=== PATIENT | male | born 1960 | race Caucasian/White ===

== ENCOUNTER 2018-05-15 23:04 | Emergency (ER) | payer SELFPAY ==
[~2018-05-15] VITALS: Ht 188 cm; Wt 99.8 kg
[2018-05-16] MEDS ORDERED: METHYLPREDNISOLONE SOD SUCC 125 MG/2ML VIAL IM ONE (01:00)
[2018-05-16] MEDS ORDERED: KETOROLAC TROMETHAMINE 60 MG/2 ML VIAL IM ONE (01:00)
== END 2018-05-16 01:55 | disposition home or self-care (01) ==
LOC: ER 23:04
DX: M54.42 Lumbago with sciatica, left side (principal); I10 Essential (primary) hypertension
CPT/HCPCS: 96372; 99282; J1885; J2930

== ENCOUNTER → 2018-05-23 | Outpatient (CLI) | payer OTHER ==
[~2018-05-23] MED LIST: LORAZEPAM INJ 2 MG/ML VIAL ONE
--- NOTE | 2018-05-24 09:44 | Diagnostic Imaging Report ---
History: Low back pain. Lumbar stenosis Comparison studies: None Technique: Sagittal, coronal and axial T2 , sagittal T1 and IR, axial spin density oblique. Intravenous contrast: None Findings: Number of lumbar vertebral bodies:5 Alignment: Straightening of the lordosis.No scoliosis. Soft tissues: No T2 hyperintense inflammatory changes. 2.8 cm cyst is seen at the right interpolar region Paraspinal muscles: No signal abnormalities. No atrophy. Lower thoracic cord:Normal in signal and morphology. The tip of the conus is at T12-L1. Cauda equina: No masses. No arachnoiditis. Vertebrae: Normal in height and signal intensity. No compression fractures, infection or neoplasm. Degenerative changes: L1-L2: Disc degeneration with loss of T2 signal and decreased intervertebral space. Diffuse disc bulge with superimposed small central annular fissure and mild facet hypertrophy results in mild canal stenosis and mild bilateral foraminal narrowing. L2-L3: Disc degeneration with loss of T2 signal and decreased intervertebral. Mild diffuse disc bulge with superimposed small central annular fissure and mild bilateral facet hypertrophy results in no significant canal stenosis or foraminal narrowing. L3-L4: Disc degeneration with loss of T2 signal. Mild disc bulge, mild facet hypertrophy and ligamentum flavum thickening results in no significant canal stenosis and mild right foraminal narrowing. L4-L5: Disc degeneration with loss of T2 signal. Asymmetric left disc bulge with superimposed left foraminal disc protrusion and mild facet hypertrophy results in no significant canal stenosis and severe left foraminal narrowing with impingement of the exiting L4 nerve root. Trace of fluid at the bilateral facet joints and L4 inferior facet 2-5 mm subchondral cysts L5-S1: Disc degeneration with loss of T2 signal asymmetric right disc bulge and mild bilateral facet hypertrophy results in no significant canal stenosis, moderate left and severe right foraminal narrowing. Trace of fluid at the bilateral facet joints and L5 inferior facet 2-4 mm subchondral cysts Additional findings: None IMPRESSION: Severe left foraminal narrowing at L4-L5 secondary to left foraminal disc protrusion results in impingement on the exiting L4 nerve root. Severe right foraminal narrowing at L5-S1 secondary to asymmetric right disc bulge and mild facet hypertrophy. Diffuse disc degeneration throughout the lumbar spine without endplate edema. Mild facet hypertrophy the lower lumbar spine with mild synovitis changes at L4-L5 and L5-S1. Other degenerative changes as described above Signed by: Damien Pfeiffer.D. on 05/24/2018 9:40 AM
== END ==
LOC: MRI 15:14
PROVIDERS: ATTEND Neurological Surgery
DX: M48.061 Spinal stenosis, lumbar region without neurogenic claudication (principal)
CPT/HCPCS: 72148; J2060

== ENCOUNTER → 2020-07-18 | Day surgery (SDC) | payer OTHER ==
[2020-07-04 10:38] LABS: ANION GAP 16.2 mmol/L (8-16); CALCIUM 9.3 mg/dL (8.4-10.2); CREATININE, SERUM 1.34 mg/dL (0.72-1.25); POTASSIUM 4.2 mmol/L (3.5-5.1)
[~2020-07-18] MED LIST changes: +BUPIVACAINE HCL 0.5% INJ 30 ML VIAL INJ ONE; +BYSTOLIC10 MG PO; +CEFAZOLIN SOD 1 GM/NS 50ML 50 ML IV ONE; +DESFLURANE 240 ML BTL INH ONE; +DEXAMETHASONE SOD PHOS INJ 4 MG/ML VIAL ONE; +FENTANYL CITRATE/PF 100MCG/2 ML INJ ONE; +FINASTERIDE5 MG PO; +LEVOCETIRIZINE D5 MG PO; +LIDOCAINE HCL 2% LOCAL INJ 5 ML SDV VIAL INJ ONE; -LORAZEPAM INJ 2 MG/ML VIAL ONE; +MIDAZOLAM HCL 2 MG/2 ML VIAL ONE; +MUPIROCIN 2% OINT 22 GM TUBE ONE; +ONDANSETRON HCL INJ 2MG/ML 2ML 2 MG/ML VIAL ONE; +PROPOFOL IV EMULSION 10 MG/ML 20 ML VIAL ONE; +TRIAMCINOLONE ACET 40 MG/ML VIAL ONE; +VALSARTAN-HCTZ1 EAC1 PO
[2020-07-18 08:20] VITALS: BP 112/82
== END | disposition home or self-care (01) ==
LOC: OR 05:35
PROVIDERS: ATTEND Plastic Surgery
DX: G56.01 Carpal tunnel syndrome, right upper limb (principal); M18.9 Osteoarthritis of first carpometacarpal joint, unspecified; M65.831 Other synovitis and tenosynovitis, right forearm; U07.1 COVID-19; I10 Essential (primary) hypertension; Z01.812 Encounter for preprocedural laboratory examination; Z20.828 Contact with and (suspected) exposure to other viral communicable diseases
CPT/HCPCS: 20600; 25115; 36415; 80048; J0690; J1100; J2001; J2250; J2405; J2704; J3010; J3301; U0002

== ENCOUNTER 2022-09-17 08:27 | Emergency (ER) | payer OTHER ==
[~2022-09-17] VITALS: Ht 190.5 cm; Wt 131.5 kg
[~2022-09-17 08:27] MED LIST changes: -BUPIVACAINE HCL 0.5% INJ 30 ML VIAL INJ ONE; -CEFAZOLIN SOD 1 GM/NS 50ML 50 ML IV ONE; -DESFLURANE 240 ML BTL INH ONE; -DEXAMETHASONE SOD PHOS INJ 4 MG/ML VIAL ONE; -FENTANYL CITRATE/PF 100MCG/2 ML INJ ONE; -LIDOCAINE HCL 2% LOCAL INJ 5 ML SDV VIAL INJ ONE; -MIDAZOLAM HCL 2 MG/2 ML VIAL ONE; -MUPIROCIN 2% OINT 22 GM TUBE ONE; -ONDANSETRON HCL INJ 2MG/ML 2ML 2 MG/ML VIAL ONE; -PROPOFOL IV EMULSION 10 MG/ML 20 ML VIAL ONE; -TRIAMCINOLONE ACET 40 MG/ML VIAL ONE
[2022-09-17] MEDS ORDERED: PROPECIA1 MG (09:01)
[2022-09-17] MEDS ORDERED: AMLODIPINE BESYL5 MG PO (09:01)
[2022-09-17] MEDS ORDERED: VITAMIN D3250 MC1 (09:01)
[2022-09-17] MEDS ORDERED: MELOXICAM5 MG PO (09:01)
[2022-09-17] MEDS ORDERED: AUGMENTIN 500-1 EACH PO (09:28)
[2022-09-17] MEDS ORDERED: IBUPROFEN 400 MG TAB PO ONE (09:30)
[2022-09-17] MEDS ORDERED: CEFTRIAXONE 1 GM VIAL IM ONE (09:30)
[2022-09-17] MEDS ORDERED: PAXLOVID 300-11 EACH PO (10:42)
== END 2022-09-17 09:34 | disposition home or self-care (01) ==
LOC: FSED 08:40
DX: R50.9 Fever, unspecified (principal); U07.1 COVID-19; J02.0 Streptococcal pharyngitis; R05.9 Cough, unspecified; I10 Essential (primary) hypertension; Z98.84 Bariatric surgery status; L65.9 Nonscarring hair loss, unspecified
CPT/HCPCS: 83518; 87400; 96372; 99283; J0696; U0002

== ENCOUNTER 2024-10-29 21:05 | Emergency (ER) | payer MEDICARE, OTHER ==
[~2024-10-29] VITALS: Ht 190.5 cm; Wt 120.2 kg
[~2024-10-29 21:05] MED LIST changes: +AMLODIPINE BESYL5 MG PO; +AUGMENTIN 500-1 EACH PO; +MELOXICAM5 MG PO; +PAXLOVID 300-11 EACH PO; +PROPECIA1 MG; +VITAMIN D3250 MC1
[2024-10-30 00:18] VITALS: PULSE 78; RESP 15; TEMP 97.9
[2024-10-30 00:37] VITALS: BP 141/89; O2SAT 98
== END 2024-10-30 00:48 | disposition other institution (70) ==
LOC: FSED 21:08
DX: R21 Rash and other nonspecific skin eruption (principal); L29.9 Pruritus, unspecified; R79.89 Other specified abnormal findings of blood chemistry; Z98.890 Other specified postprocedural states
CPT/HCPCS: 80053; 81003; 85025; 99284